=== PATIENT | male | born 1950 | race Caucasian/White ===

== ENCOUNTER 2021-01-21 02:29 | Emergency (ER) | payer MEDICARE, OTHER ==
[~2021-01-21 02:29] MED LIST: ALDACTONE 25MG25 MG PO; AMIODARONE HCL200 MG PO; ASPIRIN EC81 MG PO; ATORVASTATIN CA20 MG PO; ATORVASTATIN CA80 MG PO; AUGMENTIN 875-1 EACH PO; AZITHROMYCIN250 MG PO; BENTYL 20MG TAB20 MG PO; BRILINTA 90 MG90 MG PO; BRILINTA90 MG PO; DOXYCYCLINE HY100 MG PO; ELIQUIS 5 MG TAB5 MG PO; ENTRESTO 49 MG1 EACH PO; FLAGYL500 MG PO; FLOVENT DISKU100 MCG INH; FOLIC ACID 1 MG1 MG PO; FUROSEMIDE20 MG PO; LASIX40 MG PO; LEVAQUIN500 MG PO; LIDOPATCH1 EACH TP; LISINOPRIL10 MG PO; LOPRESSOR 25 MG25 MG NG; MAGNESIUM CITR296 ML PO; MEDROL DOSEPAK 24 MG PO; METOPROLOL SUC100 MG PO; METOPROLOL SUCC25 MG PO; MICROZIDE12.5 MG PO; NITROSTAT 0.40.4 MG SL; NITROSTAT0.4 MG SL; OMNICEF 300 MG300 MG PO; PANTOPRAZOLE SO40 MG PO; POTASSIUM CHLO20 ME2 PO; PROAIR DIGIHAL90 MCG INH; REGLAN10 MG PO; SPIRONOLACTONE25 MG PO; TENORMIN 25 MG25 MG PO; TESSALON PERLE100 MG PO; TYLENOL W/CODEIN1 E1 PO; VALTREX1000 MG PO; VISTARIL25 MG PO; VITAMIN B-121000 MC3 PO
== END 2021-01-21 03:55 | disposition home or self-care (01) ==
LOC: ER1 02:29
DX: S83.91XA Sprain of unspecified site of right knee, initial encounter (principal); S93.401A Sprain of unspecified ligament of right ankle, initial encounter; I25.2 Old myocardial infarction; I10 Essential (primary) hypertension; Z79.82 Long term (current) use of aspirin; Z79.01 Long term (current) use of anticoagulants; X50.1XXA Overexertion from prolonged static or awkward postures, initial encounter; Y92.009 Unspecified place in unspecified non-institutional (private) residence as the place of occurrence of the external cause
CPT/HCPCS: 73564; 73610; 99283

== ENCOUNTER 2021-11-09 11:53 | Emergency (ER) | payer MEDICARE, OTHER ==
[2021-11-09 12:42] LABS: HEMOGLOBIN 14.4 gm/dl (14.0-17.5); RED BLOOD COUNT 5.07 M/UL (4.20-5.50); WHITE BLOOD COUNT 6.7 K/UL (4.5-11.0)
== END 2021-11-09 13:50 | disposition home or self-care (01) ==
LOC: ER1 11:53
PROVIDERS: Emergency Medicine
DX: R04.0 Epistaxis (principal); Z79.82 Long term (current) use of aspirin
CPT/HCPCS: 30901; 82962; 85025; 99283

== ENCOUNTER → 2022-02-08 | Outpatient (CLI) | payer MEDICARE, OTHER | LOC: EXRD 10:18 | DX: M81.0 Age-related osteoporosis without current pathological fracture (principal) | CPT/HCPCS: 77080 ==

== ENCOUNTER → 2022-04-20 | Outpatient (CLI) | payer MEDICARE, OTHER | LOC: EXRD 13:12 | DX: N18.32 Chronic kidney disease, stage 3b (principal); N28.1 Cyst of kidney, acquired | CPT/HCPCS: 76775 ==

== ENCOUNTER → 2022-05-16 | Outpatient (CLI) | payer MEDICARE, OTHER | LOC: KOH-I 08:41 | DX: R91.1 Solitary pulmonary nodule (principal); I51.7 Cardiomegaly; J90 Pleural effusion, not elsewhere classified | CPT/HCPCS: 71250 ==

== ENCOUNTER 2022-05-29 23:35 | Emergency (ER) | payer MEDICARE, OTHER ==
[2022-05-30 00:05] LABS: HEMOGLOBIN 13.7 gm/dl (14.0-17.5); RED BLOOD COUNT 4.98 M/UL (4.20-5.50); WHITE BLOOD COUNT 9.9 K/UL (4.5-11.0)
== END 2022-05-30 03:11 | disposition home or self-care (01) ==
LOC: ER1 23:35
PROVIDERS: Emergency Medicine
DX: I13.0 Hypertensive heart and chronic kidney disease with heart failure and stage 1 through stage 4 chronic kidney disease, or unspecified chronic kidney disease (principal); I50.9 Heart failure, unspecified; Z20.822 Contact with and (suspected) exposure to COVID-19; I48.91 Unspecified atrial fibrillation; I25.10 Atherosclerotic heart disease of native coronary artery without angina pectoris; I25.2 Old myocardial infarction; N18.9 Chronic kidney disease, unspecified; Z91.041 Radiographic dye allergy status; Z79.82 Long term (current) use of aspirin; Z79.01 Long term (current) use of anticoagulants
CPT/HCPCS: 71045; 80053; 81001; 82550; 82553; 83880; 84484; 85025; 93005; 96374; 99285; J1940; U0002

== ENCOUNTER → 2022-06-13 | Outpatient (CLI) | payer MEDICARE, OTHER | LOC: HEART 5 09:53 | DX: R06.02 Shortness of breath (principal); R93.89 Abnormal findings on diagnostic imaging of other specified body structures | CPT/HCPCS: 94010 ==